=== PATIENT | male | born 1990 | race Two or more races ===

== ENCOUNTER 2024-03-07 17:23 | Emergency (ER) | payer MEDICAID ==
[~2024-03-07] VITALS: Ht 167.6 cm; Wt 73.0 kg
[2024-03-07 18:40] VITALS: BP 126/84; TEMP 98.7; O2SAT 100
== END 2024-03-07 18:54 | disposition home or self-care (01) ==
LOC: ER 17:27
DX: F10.129 Alcohol abuse with intoxication, unspecified (principal); R45.6 Violent behavior; Z60.2 Problems related to living alone; Y90.9 Presence of alcohol in blood, level not specified